=== PATIENT | female | born 1980 ===

== ENCOUNTER 2020-10-02 06:35 | Outpatient (REF) | payer OTHER, SELFPAY ==
[2020-10-02 11:12] LABS: MANUAL DIFF FLAG NO
[2020-10-02 11:22] LABS: Basophils Percent Auto 0.4 % (0-2); Eosinophils Absolute Auto 0.1 X10*3/uL (0.0-0.4); Eosinophils Percent Auto 1.5 % (0-4); Estimated Average Glucose 140 mg/dL; Hematocrit 41.4 % (37-47); Hemoglobin 13.2 g/dl (12.0-16.0); Hemoglobin A1c % 6.5 %; Imm Gran Abs Auto 0.02 X10*3/uL (0.00-0.03); Imm Gran Pct Auto 0.3 % (0.0-0.4); Lymphocytes Absolute Auto 2.8 X10*3/uL (1.2-4.9); Lymphocytes Percent Auto 37.8 % (20-40); Mean Corpuscular HGB Conc 31.9 g/dl (31.0-35.0); Mean Corpuscular Hemoglobin 29.5 pg (27.0-33.0); Mean Corpuscular Volume 92.4 fL (80-98); Mean Platelet Volume 11.4 fL (9.4-12.3); Monocytes Absolute Auto 0.6 X10*3/uL (0.1-1.2); Monocytes Percent Auto 7.7 % (2-11); Neutrophils Absolute Auto 3.8 X10*3/uL (2.0-8.3); Neutrophils Percent Auto 52.3 % (45-73); Platelet Count 301 X10*3/uL (160-400); Red Blood Count 4.48 X10*6/uL (4.20-5.50); Red Cell Distribution Width 12.3 % (11.0-16.0); White Blood Count 7.3 X10*3/uL (4.8-10.8)
[2020-10-02 11:57] LABS: Alanine Aminotransferase 27 U/L (0-31); Albumin Level 4.4 g/dL (3.5-5.0); Alkaline Phosphatase 39 U/L (39-117); Anion Gap 13 (12-20); Aspartate Amino Transferase 34 U/L (5-31); Bilirubin Total 0.7 mg/dL (0.0-1.0); Blood Urea Nitrogen 13 mg/dL (9-16); Calcium 9.2 mg/dL (8.4-10.2); Carbon Dioxide 26 mmol/L (22-29); Chloride 104 mmol/L (96-108); Cholesterol 183 mg/dL; Estimated Glomerular Filt Rate > 60; Glucose Fasting 76 mg/dL (60-99); HDL Cholesterol 38 mg/dL; LDL Cholesterol Calculated 124 mg/dl; Potassium 3.6 mmol/L (3.3-5.1); Sodium 139 mmol/L (135-145); Total Protein 7.4 g/dL (6.5-8.0); Triglycerides 107 mg/dL
[2020-10-02 12:03] LABS: Creatinine Urine 121.79 mg/dL; Microalbum/Creatinine Ratio Ur 4.9 ug/mg cr; Vitamin D 25-OH Total 23.4 ng/mL (>30)
[2020-10-03 05:37] LABS: LDL Cholesterol Direct 131 mg/dL (<100)
== END 2020-10-02 06:36 | disposition home or self-care (01) ==
LOC: HO.HMGCLDS 06:35
PROVIDERS: PCP Internal Medicine; Visit Provider Internal Medicine Endocrinology, Diabetes & Metabolism
DX: E11.29 Type 2 diabetes mellitus with other diabetic kidney complication (principal); E55.9 Vitamin D deficiency, unspecified
CPT/HCPCS: 36415; 80053; 80061; 82043; 82306; 83036; 83721; 85025

== ENCOUNTER → 2020-10-03 08:36 | Outpatient (BNVA) | payer OTHER, SELFPAY | PROVIDERS: PCP Internal Medicine; Visit Provider Internal Medicine Endocrinology, Diabetes & Metabolism | DX: E11.21 Type 2 diabetes mellitus with diabetic nephropathy (principal); Z79.4 Long term (current) use of insulin; I10 Essential (primary) hypertension; E78.5 Hyperlipidemia, unspecified; E55.9 Vitamin D deficiency, unspecified; E66.9 Obesity, unspecified; Z68.32 Body mass index [BMI] 32.0-32.9, adult; Z79.899 Other long term (current) drug therapy | CPT/HCPCS: 82947; 99212 ==

== ENCOUNTER → 2021-02-27 13:44 | Outpatient (BNVA) | payer OTHER, SELFPAY | PROVIDERS: PCP Internal Medicine; Visit Provider Internal Medicine Endocrinology, Diabetes & Metabolism | DX: E11.21 Type 2 diabetes mellitus with diabetic nephropathy (principal); E78.5 Hyperlipidemia, unspecified; E55.9 Vitamin D deficiency, unspecified; E66.9 Obesity, unspecified; I10 Essential (primary) hypertension; Z79.4 Long term (current) use of insulin | CPT/HCPCS: 82947 ==

== ENCOUNTER 2023-06-09 08:43 | Outpatient (AMB) | payer OTHER, SELFPAY ==
[2023-06-09 08:47] VITALS: BP 138/78; PULSE 75; O2SAT 98; BMI 33.2
--- NOTE | 2023-06-09 08:47 | MHC.PC.OV ---
Vital Signs 06/09/23 08:47 Height 5 ft Weight 170 lb BMI 33.2 BP 138/78 Blood Pressure Location Lt brachial Position Sitting Pulse 75 Pulse Source Pulse Oximeter Pulse Oximetry (%) 98 Oxygen Delivery Method Room Air Intake Visit Reasons: Annual Physical Wage And Salary Administrator Required: No Program Associate: Not Required per policy Accompanied by: Self / Same As Patient Allergies No Known Allergies Allergy (Verified 06/09/23 08:47) Medication List - Last Reconciled 06/09/23 by Julio C Jin MD blood sugar diagnostic (FreeStyle Lite Strips) 6x daily labetalol 100 mg PO BID metformin ER 500 mg PO BID pen needle, diabetic (BD Shavon 2nd Gen Pen Needle) once a day Tobacco use date assessed: 06/09/23 Dental Screening Dental Screen Date: 06/09/23 Did you have a dental visit in the last 12 months?: Yes Did you have a dental problem in the last 6 months where you did not have access to dental care?: No Was dental information given to patient?: Patient has dentist HPI Annual Physical HPI Details HTN and DM; sees endo [facility] Medical History Obesity (BMI 30-39.9) Vitamin D deficiency Dyslipidemia Hypertension Diabetic nephropathy associated with type 2 diabetes mellitus [facility]CI (current) use of insulin Diabetes type 2, controlled Surgical History Hx of umbilical hernia repair Hx of section Hx of cholecystectomy Family History Father Diabetes mellitus Mother Diabetes mellitus Maternal Grandmother Diabetes mellitus Social History Housing: House Alcohol intake: current Alcohol intake frequency: a few times a month Patient Tobacco Use Status: Never used Tobacco e-Cigarette/Vaping Use: Never Used service: No Current occupational status: employed Cognitive needs: No Hearing needs: No Vision needs: No Questionnaire PHQ-9 Over the last 2 weeks, how often have you been bothered by any of the following problems? 1. Little interest or pleasure in doing things: not at all 2. Feeling down, depressed, or hopeless: not at all 3. Trouble falling or staying asleep, or sleeping too much: not at all 4. Feeling tired or having little energy: not at all 5. Poor appetite or overeating: not at all 6. Feeling bad about yourself - or that you are a failure or have let yourself or your family down: not at all 7. Trouble concentrating on things, such as reading the newspaper or watching television: not at all 8. Moving or speaking so slowly that other people could have noticed. Or the opposite - being so fidgety or restless that you have been moving around a lot more than usual: not at all 9. Thoughts that you would be better off or of hurting yourself in some way: not at all Total score: 0 Depression Screening Interpretation: Negative Depression Screening Done: Yes Source: Developed by Drs. Obinna Mei, Mercy Resendiz, Kenton Mclaughlin and colleagues, with an educational simran from [email or web address]. Thrive Questionnaire Date Thrive assessed: 06/09/23 I am a: Patient What is your living situation today?: I have a steady place to live Within the past 12 months, did the food you bought not last and you didn't have the money to get more?: Never true Within the past 12 months, did you worry whether your food would run out before you got money to buy more?: Never true Do you have trouble paying for medicines?: No Do you have trouble getting transportation to medical appointments?: No Do you have trouble paying your heating and electricity bill?: No Do you have trouble taking care of your child, family member or friend?: No Do you have trouble with day-to-day activities such as bathing, preparing meals, shopping, managing finances, etc.?: No Are you currently unemployed and looking for a job?: No Are you interested in more education?: No Please select the resources that you would like help with: None AUDIT C Alcohol Use Questionnaire (AUDIT-C) 1. How often do you have a drink containing alcohol?: 2-4 times a month 2. How many drinks containing alcohol do you have on a typical day when you are drinking?: 1 or 2 3. How often do you have six or more drinks on one occasion?: Never Total Score: 2 Score Reviewed/Action Taken: Yes GILES-7 AMB Questionnaire GILES-7 Date GILES - 7 assessed: 06/09/23 Feeling nervous, anxious, or on edge: 0 = Not at all Not being able to stop or control worryin = Not at all Worrying too much about different things: 0 = Not at all Trouble relaxin = Not at all Being so restless that it is hard to sit still: 0 = Not at all Becoming easily annoyed or irritable: 0 = Not at all Feeling afraid as if something awful might happen: 0 = Not at all Total GILES-7 score (0-4 normal; 5-9 mild; 10-14 moderate; 15-21 severe): 0 Source: Developed by Drs. Obinna Mei, Mercy Resendiz, Kenton Mclaughlin and colleagues, with an educational simran from [email or web address]. Review of Systems Const Denies chills, Denies fatigue, Denies headache(s) and Denies weight loss Eyes Denies change in vision, Denies diplopia and Denies eye pain ENT Denies vertigo, Denies dizziness, Denies headache(s) and Denies nasal discharge Card Denies chest pain, Denies rapid heart rate and Denies dyspnea on exertion Resp Denies chest congestion, Denies cough, Denies pain with cough and Denies dyspnea on exertion GI Denies abdominal pain, Denies hematochezia and Denies change in bowel habits Musc Denies myalgias, Denies arthralgias and Denies joint swelling Skin/Breast Denies lesions and Denies unusual bruising Neuro Denies vertigo, Denies dizziness, Denies headache(s) and Denies focal weakness Endo Denies fatigue Physical exam (Primary Care) Vital Signs: Last Vital Signs Pulse 75 06/09/23 08:47 BP 138/78 06/09/23 08:47 Pulse Ox 98 06/09/23 08:47 Oxygen Delivery Method Room Air 06/09/23 08:47 BMI result Body Mass Index 33.2 Tobacco/Smoking Status: Tobacco use Status Tobacco use date assessed 06/09/23 06/09/23 08:49 Patient Tobacco Use Status Never used Tobacco 06/09/23 08:49 Tobacco use type 06/08/23 08:33 e-Cigarette/Vaping Use Never Used 06/09/23 08:49 PHQ-9: PHQ-9 Score PHQ-9: Total score 0 06/09/23 08:49 Depression Screening Interpretation: Negative Thrive Assessment: Date of Thrive Assessment Date Thrive assessed 06/09/23 06/09/23 08:49 Const General: cooperative, healthy appearing and no acute distress Orientation/consciousness: oriented to person, oriented to place and oriented to time HENMT Head: Yes normal to inspection, Yes normocephalic and Yes atraumatic Mouth: Normal oral and palatal mucosa present and tongue normal Throat: Yes posterior oropharynx normal and Yes uvula midline Eyes General: appearance normal, both eyes and all related structures Neck Neck: Yes normal visual inspection, Yes full ROM and Yes no lymphadenopathy Thyroid: Thyroid normal Carotids: normal carotid upstroke Chest Chest palpation & inspection: normal inspection of the chest Resp Effort & Inspection: normal respiratory effort and able to speak in complete sentences Auscultation: clear to auscultation bilaterally Cardio Jugular venous distension: no JVD Palpation: normal PMI Rate: regular rate Rhythm: regular rhythm Heart sounds: S1 normal heart sound present and S2 normal heart sound present GI Inspection: Yes normal to inspection Palpation (GI): Soft to palpation and No hepatosplenomegaly present Auscultation: normal bowel sounds General: Yes no CVA tenderness Back/Spine/Pelvis Back: no CVA tenderness Skin General skin exam: no rashes or lesions noted Neuro General: oriented to person, oriented to place and oriented to time Extrem General: Yes normal to inspection and Yes full ROM Assessment and Plan Assessment & Plan (1) Physical exam: Code(s): Z00.00 - Encounter for general adult medical examination without abnormal findings Plan: do labs (2) Hypertension: Code(s): I10 - Essential (primary) hypertension Plan: stable; same rx (3) Diabetes mellitus with coincident hypertension: Code(s): E11.9 - Type 2 diabetes mellitus without complications; I10 - Essential (primary) hypertension Plan: stable; sees endo Orders: Orders AMB Hemoglobin A1c Today E11.9 - Type 2 diabetes mellitus without complications Comprehensive [place]. Panel Fast Today N28.9 - Disorder of kidney and ureter, unspecified Lipid Panel Today E78.5 - Hyperlipidemia, unspecified Complete Blood Count Auto Diff Today D64.9 - Anemia, unspecified Thyroid Stimulating Hormone Today E03.9 - Hypothyroidism, unspecified Hemoglobin A1c Today R73.9 - Hyperglycemia, unspecified ECG 12 lead EKG Today R07.9 - Chest pain, unspecified Coding Level of Care Code Est Pt Prev Care 40-64y(61952) Diagnoses Physical exam Z00.00 Hypertension I10 Diabetes mellitus with coincident hypertension E11.9; I10 Additional Codes PHQ-9 - 62438 - PHQ-9 Billing: ([id number])
== END 2023-06-09 09:14 | disposition home or self-care (01) ==
PROVIDERS: PCP Internal Medicine; Visit Provider Internal Medicine
DX: Z00.00 Encounter for general adult medical examination without abnormal findings (principal); I10 Essential (primary) hypertension; E11.9 Type 2 diabetes mellitus without complications
CPT/HCPCS: 83036; 99396

== ENCOUNTER 2023-06-09 09:19 | Outpatient (REF) | payer OTHER, SELFPAY ==
[2023-06-09 12:19] LABS: Estimated Average Glucose 275 mg/dL; Hemoglobin A1c % 11.2 % (<6.0)
== END 2023-06-09 09:20 | disposition home or self-care (01) ==
LOC: HO.LAB 09:19
PROVIDERS: PCP Internal Medicine; Visit Provider Internal Medicine
DX: R07.9 Chest pain, unspecified (principal); E11.9 Type 2 diabetes mellitus without complications; D64.9 Anemia, unspecified; N28.9 Disorder of kidney and ureter, unspecified; E78.5 Hyperlipidemia, unspecified; E03.9 Hypothyroidism, unspecified
CPT/HCPCS: 36415; 80053; 80061; 83036; 84443; 85025; 93005

== ENCOUNTER 2024-06-12 08:48 | Outpatient (AMB) | payer OTHER, SELFPAY ==
[2024-06-12 08:56] VITALS: BP 140/88; PULSE 95; O2SAT 97; BMI 33.0
--- NOTE | 2024-06-12 08:56 | A.OFFPC_ITS ---
Vital Signs 06/12/24 08:56 Height 5 ft Weight 169 lb BMI 33.0 BP 140/88 H Blood Pressure Location Lt brachial Position Sitting Pulse 95 Pulse Source Pulse Oximeter Pulse Oximetry (%) 97 Oxygen Delivery Method Room Air Intake Visit Reasons: ANNUAL Labor Trainer Required: No Accompanied by: Self / Same As Patient Allergies No Known Allergies Allergy (Verified 06/12/24 09:00) Medication List - Last Reconciled 06/12/24 by Julio C Jin MD blood sugar diagnostic (FreeStyle Lite Strips) 6x daily empagliflozin (Jardiance) 25 mg PO DAILY metformin ER 500 mg PO BID pen needle, diabetic (BD Shavon 2nd Gen Pen Needle) once a day Tobacco use date assessed: 06/12/24 Dental Screening Dental Screen Date: 06/12/24 Did you have a dental visit in the last 12 months?: Yes Did you have a dental problem in the last 6 months where you did not have access to dental care?: No Was dental information given to patient?: Patient has dentist HPI ANNUAL HPI Details DM on rx; doing well; compliant and sees endo; A1C high PFSH Medical History Obesity (BMI 30-39.9) Vitamin D deficiency Dyslipidemia Hypertension Diabetic nephropathy associated with type 2 diabetes mellitus alf (current) use of insulin Diabetes type 2, controlled Surgical History Hx of umbilical hernia repair Hx of section Hx of cholecystectomy Family History Father Diabetes mellitus Mother Diabetes mellitus Maternal Grandmother Diabetes mellitus Social History Housing: House Alcohol intake: current Alcohol intake frequency: a few times a month Patient Tobacco Use Status: Never used Tobacco Tobacco use type: Cigarette e-Cigarette/Vaping Use: Never Used Second Hand Smoke Exposure: No service: No Current occupational status: employed Cognitive needs: No Hearing needs: No Vision needs: No Questionnaire PHQ-9 Over the last 2 weeks, how often have you been bothered by any of the following problems? 1. Little interest or pleasure in doing things: not at all 2. Feeling down, depressed, or hopeless: not at all 3. Trouble falling or staying asleep, or sleeping too much: not at all 4. Feeling tired or having little energy: not at all 5. Poor appetite or overeating: not at all 6. Feeling bad about yourself - or that you are a failure or have let yourself or your family down: not at all 7. Trouble concentrating on things, such as reading the newspaper or watching television: not at all 8. Moving or speaking so slowly that other people could have noticed. Or the opposite - being so fidgety or restless that you have been moving around a lot more than usual: not at all 9. Thoughts that you would be better off or of hurting yourself in some way: not at all Total score: 0 Source: Developed by Drs. Obinna Mei, Mercy Resendiz, Kenton Mclaughlin and colleagues, with an educational simran from [employer]. Thrive Questionnaire Date Thrive assessed: 06/12/24 I am a: Patient What is your living situation today?: I have a steady place to live Within the past 12 months, did the food you bought not last and you didn't have the money to get more?: Never true Within the past 12 months, did you worry whether your food would run out before you got money to buy more?: Never true Do you have trouble paying for medicines?: No Do you have trouble getting transportation to medical appointments?: No Do you have trouble paying your heating and electricity bill?: No Do you have trouble taking care of your child, family member or friend?: No Do you have trouble with day-to-day activities such as bathing, preparing meals, shopping, managing finances, etc.?: No Are you currently unemployed and looking for a job?: No Are you interested in more education?: No Please select the resources that you would like help with: None Currently or been in a relationship where the following occur: No concerns reported THRIVE Score: 0 AUDIT C Alcohol Use Questionnaire (AUDIT-C) 1. How often do you have a drink containing alcohol?: Never Total Score: 0 GILES-7 AMB Questionnaire GILES-7 Date GILES - 7 assessed: 06/12/24 Feeling nervous, anxious, or on edge: 0 = Not at all Not being able to stop or control worryin = Not at all Worrying too much about different things: 0 = Not at all Trouble relaxin = Not at all Being so restless that it is hard to sit still: 0 = Not at all Becoming easily annoyed or irritable: 0 = Not at all Feeling afraid as if something awful might happen: 0 = Not at all Total GILES-7 score (0-4 normal; 5-9 mild; 10-14 moderate; 15-21 severe): 0 Source: Developed by Drs. Obinna Mei, Mercy Resendiz, Kenton Mclaughlin and colleagues, with an educational simran from [employer]. Review of Systems Const Denies chills, Denies fatigue, Denies headache(s) and Denies weight loss Eyes Denies change in vision, Denies diplopia and Denies eye pain ENT Reports Normal hearing present, Denies vertigo, Denies dizziness, Denies headache(s) and Denies nasal discharge Card Denies chest pain, Denies rapid heart rate and Denies dyspnea on exertion Resp Denies chest congestion, Denies cough, Denies pain with cough and Denies dyspnea on exertion GI Denies abdominal pain, Denies hematochezia and Denies change in bowel habits Musc Denies myalgias, Denies arthralgias and Denies joint swelling Skin/Breast Denies lesions and Denies unusual bruising Neuro Reports Normal hearing present, Denies vertigo, Denies dizziness, Denies headache(s) and Denies focal weakness Endo Denies fatigue Physical exam (Primary Care) Vital Signs: Last Vital Signs Pulse 95 06/12/24 08:56 BP 140/88 H 06/12/24 08:56 Pulse Ox 97 06/12/24 08:56 Oxygen Delivery Method Room Air 06/12/24 08:56 BMI result Body Mass Index 33.0 Tobacco/Smoking Status: Tobacco use Status Tobacco use date assessed 06/12/24 06/12/24 09:03 Patient Tobacco Use Status Never used Tobacco 06/12/24 09:03 Tobacco use type Cigarette 06/12/24 09:03 e-Cigarette/Vaping Use Never Used 06/12/24 09:03 PHQ-9: PHQ-9 Score PHQ-9: Total score 0 06/12/24 09:07 Thrive Assessment: Date of Thrive Assessment Date Thrive assessed 06/12/24 06/12/24 09:03 Currently or been in a relationship where the following occur: No concerns reported Const General: cooperative, healthy appearing and no acute distress Orientation/consciousness: oriented to person, oriented to place and oriented to time HENMT Head: Yes normal to inspection, Yes normocephalic and Yes atraumatic Mouth: Normal oral and palatal mucosa present and tongue normal Throat: Yes posterior oropharynx normal and Yes uvula midline Eyes General: appearance normal, both eyes and all related structures Neck Neck: Yes normal visual inspection, Yes full ROM and Yes no lymphadenopathy Thyroid: Thyroid normal Carotids: normal carotid upstroke Chest Chest palpation & inspection: normal inspection of the chest Resp Effort & Inspection: normal respiratory effort and able to speak in complete sentences Auscultation: clear to auscultation bilaterally Cardio Jugular venous distension: no JVD Palpation: normal PMI Rate: regular rate Rhythm: regular rhythm Heart sounds: S1 normal heart sound present and S2 normal heart sound present GI Inspection: Yes normal to inspection Palpation (GI): Soft to palpation and No hepatosplenomegaly present Auscultation: normal bowel sounds General: Yes no CVA tenderness Back/Spine/Pelvis Back: no CVA tenderness Skin General skin exam: no rashes or lesions noted Neuro General: oriented to person, oriented to place and oriented to time Cranial nerves: Yes Normal hearing present Extrem General: Yes normal to inspection and Yes full ROM Results AMB Hemoglobin A1c AMB Hemoglobin A1c 11.4 % Last Edit by Ana Lilia Koch CMA on 06/12/24 09:0 7 Results Reviewed Results Reviewed: Laboratory Last Values Hgb A1c (Clinic) 11.4 % (4.0-6.0) H 06/12/24 09:03 Coding Level of Care Code Est Pt Prev Care 40-64y(11549) Diagnoses Physical exam Z00.00 Diabetes mellitus with coincident hypertension E11.9; I10 Assessment & Plan Assessment & Plan (1) Physical exam: Code(s): Z00.00 - Encounter for general adult medical examination without abnormal findings Category: Medical Plan: stable (2) Diabetes mellitus with coincident hypertension: Code(s): E11.9 - Type 2 diabetes mellitus without complications; I10 - Essential (primary) hypertension Category: Medical Plan: same rx per endo; do lbs Orders: Orders Thyroid Stimulating Hormone Today Z13.29 - Encounter for screening for other suspected endocrine disorder Hemoglobin A1c Today R73.9 - Hyperglycemia, unspecified Microalbumin, Random (w Creat) Today E11.69 - Type 2 diabetes mellitus with other specified complication, E66.01 - Morbid (severe) obesity due to excess calories AMB Hemoglobin A1c Today E11.9 - Type 2 diabetes mellitus without complications, I10 - Essential (primary) hypertension Lipid Panel Today Z13.220 - Encounter for screening for lipoid disorders Comprehensive [place]. Panel Fast Today Z13.9 - Encounter for screening, unspecified Complete Blood Count Auto Diff Today Z13.0 - Encounter for screening for diseases of the blood and blood-forming organs and certain disorders involving the immune mechanism US abdomen complete Today R10.9 - Unspecified abdominal pain
== END 2024-06-12 09:23 | disposition home or self-care (01) ==
PROVIDERS: PCP Internal Medicine; Visit Provider Internal Medicine
DX: Z00.00 Encounter for general adult medical examination without abnormal findings (principal); E11.9 Type 2 diabetes mellitus without complications; I10 Essential (primary) hypertension

== ENCOUNTER → 2024-06-12 08:48 | Outpatient (BNVA) | payer OTHER, SELFPAY | PROVIDERS: PCP Internal Medicine; Visit Provider Internal Medicine | DX: Z00.00 Encounter for general adult medical examination without abnormal findings (principal); E11.9 Type 2 diabetes mellitus without complications | CPT/HCPCS: 83036; 96127 ==

== ENCOUNTER 2024-12-12 10:19 | Outpatient (AMB) | payer OTHER, SELFPAY ==
--- NOTE | 2024-12-12 10:24 | A.OFFPC_ITS ---
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 Accompanied by: Self / Same As Patient Allergies No Known Allergies Allergy (Verified 12/12/24 10:40) Medication List - Last Reconciled 12/12/24 by Annie Faith PA-C blood sugar diagnostic (FreeStyle Lite Strips) 6x daily empagliflozin (Jardiance) 25 mg PO DAILY glipizide ER 2.5 mg PO DAILY metformin ER 500 mg PO BID pen needle, diabetic (BD Shavon 2nd Gen Pen Needle) once a day Tobacco use date assessed: 12/12/24 Dental Screening Dental Screen Date: 12/12/24 Did you have a dental visit in the last 12 months?: No Did you have a dental problem in the last 6 months where you did not have access to dental care?: No Was dental information given to patient?: Patient has dentist HPI ISABEL Dr Jin HPI Details 44-year-old female with past medical his tory of diabetes mellitus, hypertension, dyslipidemia last seen by Dr. Jin 05/2024 coming in for transfer of care. Presenting with diabetes management concerns and knee pain. Current medications include Jardiance, glipizide, and metformin for diabetes. Hemoglobin A1c recently noted at 10.5 with hopes for improvement through nutritional interventions. Engages in an insurance-provided weight management program focusing on nutritional change, beginning with a keto-based diet next week. 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 She also recently had labs done through [facility] and will work on getting a sees results. She follows with gynecology through [facility] for routine Pap smears and sees the eye doctor yearly. She does mentioned bilateral knee pain. 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 Diabetes type 2, controlled Surgical History Hx of umbilical hernia repair Hx of section Hx of cholecystectomy Family History Father Diabetes mellitus Mother Diabetes mellitus Maternal Grandmother Diabetes mellitus Social History Housing: House Alcohol intake: current Alcohol intake frequency: a few times a month Patient Tobacco Use Status: Never used Tobacco Tobacco use type: Cigarette e-Cigarette/Vaping Use: Never Used Second Hand Smoke Exposure: No service: No Current occupational status: employed Cognitive needs: No Hearing needs: No Vision needs: No Questionnaire PHQ-9 Over the last 2 weeks, how often have you been bothered by any of the following problems? 1. Little interest or pleasure in doing things: not at all 2. Feeling down, depressed, or hopeless: not at all 3. Trouble falling or staying asleep, or sleeping too much: not at all 4. Feeling tired or having little energy: not at all 5. Poor appetite or overeating: not at all 6. Feeling bad about yourself - or that you are a failure or have let yourself or your family down: not at all 7. Trouble concentrating on things, such as reading the newspaper or watching television: not at all 8. Moving or speaking so slowly that other people could have noticed. Or the opposite - being so fidgety or restless that you have been moving around a lot more than usual: not at all 9. Thoughts that you would be better off or of hurting yourself in some way: not at all Total score: 0 Depression Screening Interpretation: Negative Depression Screening Done: Yes Source: Developed by Drs. Obinna Mei, Mercy Resendiz, Kenton Mclaughlin and colleagues, with an educational simran from [employer]. Thrive Questionnaire Date Thrive assessed: 12/12/24 I am a: Patient What is your living situation today?: I have a steady place to live Within the past 12 months, did the food you bought not last and you didn't have the money to get more?: Never true Within the past 12 months, did you worry whether your food would run out before you got money to buy more?: Never true Do you have trouble paying for medicines?: No Do you have trouble getting transportation to medical appointments?: No Do you have trouble paying your heating and electricity bill?: No Do you have trouble taking care of your child, family member or friend?: No Do you have trouble with day-to-day activities such as bathing, preparing meals, shopping, managing finances, etc.?: No Are you currently unemployed and looking for a job?: No Are you interested in more education?: No Please select the resources that you would like help with: None Currently or been in a relationship where the following occur: No concerns reported THRIVE Score: 0 AUDIT C Alcohol Use Questionnaire (AUDIT-C) 2. How many drinks containing alcohol do you have on a typical day when you are drinking?: 1 or 2 3. How often do you have six or more drinks on one occasion?: Never Total Score: 0 GILES-7 AMB Questionnaire GILES-7 Date GILES - 7 assessed: 12/12/24 Feeling nervous, anxious, or on edge: 0 = Not at all Not being able to stop or control worryin = Not at all Worrying too much about different things: 0 = Not at all Trouble relaxin = Not at all Being so restless that it is hard to sit still: 0 = Not at all Becoming easily annoyed or irritable: 0 = Not at all Feeling afraid as if something awful might happen: 0 = Not at all Total GILES-7 score (0-4 normal; 5-9 mild; 10-14 moderate; 15-21 severe): 0 Source: Developed by Drs. Obinna Mei, Mercy Resendiz, Kenton Mclaughlin and colleagues, with an educational simran from [employer]. GILES-7 Assessment Billing GILES-7 Assessment Tool: GILES-7 Assessment 76794 Review of Systems Const Denies body aches, Denies chills, Denies fever(s), Reports headache(s) and Denies poor appetite Eyes Reports no additional complaints ENT Denies dizziness and Reports headache(s) Card Denies chest pain, Denies syncope, Denies edema, Denies irregular heart rhythm, Denies lightheadedness and Denies dyspnea Resp Denies cough and Denies dyspnea GI Denies nausea and Denies vomiting Reports no additional complaints Musc Reports no additional complaints and Denies abnormal gait Skin/Breast Reports system reviewed and no additional complaints, except as documented Neuro Denies abnormal gait, Denies dizziness, Denies syncope and Reports headache(s) Psych Reports no additional complaints Physical exam (Primary Care) Vital Signs: Last Vital Signs Temp 97.1 F 12/12/24 10:26 Pulse 78 12/12/24 10:26 BP 130/70 12/12/24 10:26 Pulse Ox 97 12/12/24 10:26 Oxygen Delivery Method Room Air 12/12/24 10:26 BMI result Body Mass Index 33.3 Tobacco/Smoking Status: Tobacco use Status Tobacco use date assessed 12/12/24 12/12/24 10:32 Patient Tobacco Use Status Never used Tobacco 12/12/24 10:32 Tobacco use type Cigarette 12/12/24 10:32 e-Cigarette/Vaping Use Never Used 12/12/24 10:32 PHQ-9: PHQ-9 Score PHQ-9: Total score 0 12/12/24 10:52 Depression Screening Interpretation: Negative Thrive Assessment: Date of Thrive Assessment Date Thrive assessed 12/12/24 12/12/24 10:32 Currently or been in a relationship where the following occur: No concerns reported Const General: cooperative, healthy appearing, comfortable and no acute distress Orientation/consciousness: patient oriented x3 HENMT Head: Yes normocephalic Ears: hearing grossly normal bilaterally General nose exam: Normal external nose present Eyes General: appearance normal, both eyes and all related structures Conjunctivae: conjunctivae normal Neck Neck: Yes full ROM and Yes no lymphadenopathy Resp Effort & Inspection: normal respiratory effort Auscultation: clear to auscultation bilaterally, no crackles, no rales, no rhonchi and no wheezes Cardio Rate: regular rate Rhythm: regular rhythm Skin General skin exam: no rashes or lesions noted Neuro General: patient oriented x3 Gait exam (Neuro): Normal gait present Extrem General: Yes normal to inspection, Yes full ROM and No edema Psych Affect: normal affect Attitude: cooperative Insight: Good insight present (Psych) Judgement: Good judgement present (Psych) Results AMB Hemoglobin A1c AMB Hemoglobin A1c 10.5 % Last Edit by ABEL Diaz on 12/12/24 10:3 7 Results Reviewed Results Reviewed: Laboratory Last Values Hgb A1c (Clinic) 10.5 % (4.0-6.0) H 12/12/24 10:24 Coding Level of Care Code Est Pt Level 4 (80112) Diagnoses Diabetes mellitus with coincident hypertension E11.9; I10 Obesity (BMI 30-39.9) E66.9 Vitamin D deficiency E55.9 Dyslipidemia E78.5 Hypertension I10 Diabetic nephropathy associated with type 2 diabetes mellitus E11.21 Bilateral knee pain M25.561; M25.562 Additional Codes GILES-7 Assessment Billing - GILES-7 Assessment Tool: GILES-7 Assessment 43757 ([id number]) Assessment & Plan Assessment & Plan (1) Diabetes mellitus with coincident hypertension: Code(s): E11.9 - Type 2 diabetes mellitus without complications; I10 - Essential (primary) hypertension Category: Medical Plan: Decrease the amount of carbohydrates such as pasta, bread, rice, and potatoes and limit the amount of sweets. Although fruits are generally healthy they should be eaten in moderation as they are still high in sugar. Hemoglobin A1c goal of less than 7%. 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 Continue to follow with [facility] endocrinology (2) Obesity (BMI 30-39.9): Code(s): E66.9 - Obesity, unspecified Category: Medical Plan: Healthy diet and regular exercise is encouraged. (3) Vitamin D deficiency: Code(s): E55.9 - Vitamin D deficiency, unspecified Category: Medical Plan: Repeat blood work recently done she will bring us the results. (4) Dyslipidemia: Code(s): E78.5 - Hyperlipidemia, unspecified Category: Medical Plan: Avoid foods that are high in cholesterol such as red meat, fried foods, eggs and baked goods. Triglyceride goal of less than 150 and LDL goal of less than 100. Cholesterol elevated on last labs not currently on medical management. She believes she had cholesterol labs done through lab [facility] and she will work on bringing as these results. (5) Hypertension: Code(s): I10 - Essential (primary) hypertension Category: Medical Plan: Continue on current blood pressure medication. Avoid salt intake and encourage healthy diet and regular exercise. Advised to take blood pressure 2-3 times per week and bring log to next visit (6) Diabetic nephropathy associated with type 2 diabetes mellitus: Code(s): E11.21 - Type 2 diabetes mellitus with diabetic nephropathy Category: Medical Plan: Advised good control of blood sugars. She will work on dietary and lifestyle modification over the next several months. (7) Bilateral knee pain: Code(s): M25.561 - Pain in right knee; M25.562 - Pain in left knee Category: Medical Plan: Declining x-ray, physical therapy or orthopedics evaluation at this time. Recommend the use of Voltaren gel as needed for pain as well as heating pad, Tylenol, ibuprofen as needed. Plan Diabetes management will continue with the current regimen without alteration until further review of upcoming [facility] results. A new nutritional initiative under insurance aims to enhance diabetes control and facilitate weight loss; patient encouraged to adhere. Address recent weight gain through dietary awareness and management of cravings at home. Voltaren gel is recommended for knee pain and instruction for home blood pressure logging is provided, with logs to be reviewed in three months. Mammogram scheduling and Pap smear follow-up to be prioritized. This note was constructed using voice recognition software. While every effort has been made to ensure accuracy and fountain pen turner, still areas may have been included sometimes these areas may affect the content or meeting of the given symptoms. Total time spent caring for the patient today was 30 minutes. This includes time spent before the visit reviewing the chart, time spent during the visit, and time spent after the visit and documentation. Patient was informed and verbally consented to the use of an ambient scribe for clinic note documentation during this visit. Orders: Orders AMB Hemoglobin A1c Today E11.9 - Type 2 diabetes mellitus without complications, I10 - Essential (primary) hypertension MM tomosynthesis screening BI Today Z12.31 - Encounter for screening mammogram for malignant neoplasm of breast Medications: New diclofenac sodium 1% (Voltaren Arthritis Pain) apply to single elbow, wrist or hand; for hand includes palm/fingers/back of hand 2 grams topical QID 100 grams 0RF
[2024-12-12 10:26] VITALS: BP 130/70; PULSE 78; TEMP 36.2; O2SAT 97; BMI 33.3
--- OUTSIDE RECORDS SUMMARY | 2024-12-12 12:17 | XMS_ITS | Continuity of Care Document ---
Author Organization [facility] Address [address] [facility]. [address] [place] [id number] Problems Condition ICD9 code ICD10 code SNOMED code Start Date End Date S tatus Encounter for screening for other metabolic disorders Z13.228 Type 2 diabetes mellitus with unspecified complications E11.8 Results Test Value / Unit Interpretation Reference Ran ge C-Peptide, Serum[[id number]]?Collected: 12/01/2024 05:48 PM?Specimen Received: 12/01/2024 05:00 AM?Source: [facility] C-Peptide, Serum [[id number]] 3.9 ng/mL 1. 1-4.4 ng/mL C-Peptide reference interval is for fasting patients. Glucose[[id number]]?Col lected: 12/01/2024 05:48 PM?Specimen Received: 12/01/2024 05:00 AM?Source: [facility] Glucose [[id number]] 172 mg/dL H 70-99 mg/dL Comp. Metabolic Panel (14)[[id number]]?Collected: 11/26/2024 05:08 PM?Specimen Received: 11/26/2024 05:00 AM?Source: [facility] Glucose [[id number]] 226 mg/dL H 70-99 mg/dL BUN [680751] 10 mg/dL 6-24 mg/dL Creatinine [767770] 0.84 mg/dL 0.57-1.0 0 mg/dL eGFR [410179] 89 mL/min/1.73 >59 mL/min/1 .73 BUN/Creatinine Ratio [238992] 12 9-23 Sodium [100405] 136 mmol/L 134-144 mmol /L Potassium [342118] 3.8 mmol/L 3.5-5.2 m mol/L Chloride [389432] 98 mmol/L 96-106 mmo l/L Carbon Dioxide, Total [743181] 24 mmol/L 20-29 mmol/L Calcium [386499] 9.7 mg/dL 8.7-10.2 mg /dL Protein, Total [541028] 7.6 g/dL 6.0- 8.5 g/dL Albumin [199008] 4.7 g/dL 3.9-4.9 g/d L Globulin, Total [863079] 2.9 g/dL 1.5 -4.5 g/dL Bilirubin, Total [520877] 0.3 mg/dL 0. 0-1.2 mg/dL Alkaline Phosphatase [386468] 85 IU/L 44-121 IU/L AST (SGOT) [603114] 35 IU/L 0-40 IU/ L ALT (SGPT) [033160] 57 IU/L H 0-32 IU/ L Lipid Panel[[id number]]?Collected: 11/26/2024 05:08 PM?Specimen Received: 11/26/2024 05:00 AM?Source: [facility] Cholesterol, Total [532645] 220 mg/dL H 100-199 mg/dL Triglycerides [358126] 214 mg/dL H 0-149 mg/dL HDL Cholesterol [906589] 53 mg/dL >39 mg/dL VLDL Cholesterol Blane [708047] 38 mg/dL 5-40 mg/dL LDL Chol Calc ([facility]) [315821] 129 mg/dL H 0-99 mg/dL Albumin/Creatinine Ratio,Uri ne[[id number]]?Collected: 11/26/2024 05:08 PM?Specimen Received: 11/26/2024 05:00 AM?Source: [facility] Creatinine, Urine [303793] 52.6 mg/dL N ot Estab. mg/dL Albumin, Urine [680666] 25.5 ug/mL Not Estab. ug/mL Alb/Creat Ratio [560363] 48 mg/g creat H 0- 29 mg/g creat Normal: 0 - 29 Moderately in creased: 30 - 300 Severely increased: >300 Hemoglobin A1c[862639]?Collected: 11/26/2024 05:08 PM?Specimen Received: 11/26/2024 05:00 AM?Source: [facility] Hemoglobin A1c [607801] 11.9 % H 4.8- 5.6 % . Prediabetes: 5.7 - 6.4 Rosa betes: >6.4 Glycemic control for adults with diabetes: 7.0 Allergies, adverse reactions, alerts No known allergies and adverse reactions Medications No administered medications reported Vital Signs No vital signs reported Social History No smoking Hx information available
== END 2024-12-12 10:58 | disposition home or self-care (01) ==
DX: E11.21 Type 2 diabetes mellitus with diabetic nephropathy (principal); I10 Essential (primary) hypertension; E66.9 Obesity, unspecified; Z68.33 Body mass index [BMI] 33.0-33.9, adult; E55.9 Vitamin D deficiency, unspecified; E78.5 Hyperlipidemia, unspecified; M25.561 Pain in right knee; M25.562 Pain in left knee

== ENCOUNTER → 2024-12-12 10:19 | Outpatient (BNVA) | payer OTHER, SELFPAY | PROVIDERS: PCP Internal Medicine | DX: E11.21 Type 2 diabetes mellitus with diabetic nephropathy (principal); I10 Essential (primary) hypertension; E66.9 Obesity, unspecified; Z68.33 Body mass index [BMI] 33.0-33.9, adult; E55.9 Vitamin D deficiency, unspecified; E78.5 Hyperlipidemia, unspecified; M25.562 Pain in left knee; M25.561 Pain in right knee | CPT/HCPCS: 83036; 96127 ==

== ENCOUNTER 2025-03-27 15:44 | Outpatient (AMB) | payer OTHER, SELFPAY ==
--- NOTE | 2025-03-27 15:47 | A.OFFPC_ITS ---
Vital Signs 03/27/25 15:48 03/27/25 16:17 Height 5 ft Weight 163 lb 4 oz BMI 31.9 BP 140/90 H 128/80 Blood Pressure Location Lt brachial Lt brachial Position Sitting Sitting Pulse 90 Pulse Source Pulse Oximeter Temp 97.6 F Temp Source Temporal Artery Scan Pulse Oximetry (%) 97 Oxygen Delivery Method Room Air Intake Visit Reasons: f/u DM and HLD Estate Manager Required: No Accompanied by: Self / Same As Patient Allergies No Known Allergies Allergy (Verified 03/27/25 15:57) Medication List - Last Reconciled 03/27/25 by Annie Faith PA-C blood sugar diagnostic (FreeStyle Lite Strips) 6x daily diclofenac sodium 1% (Voltaren Arthritis Pain) 2 grams topical QID metformin ER 500 mg PO BID pen needle, diabetic (BD Shavon 2nd Gen Pen Needle) once a day Tobacco use date assessed: 03/27/25 Dental Screening Dental Screen Date: 03/27/25 Did you have a dental visit in the last 12 months?: Yes Did you have a dental problem in the last 6 months where you did not have access to dental care?: No Was dental information given to patient?: Patient has dentist HPI f/u DM and HLD HPI Details 45-year-old female with past medical his tory of diabetes mellitus, hypertension, dyslipidemia last seen 11/2024 coming in for follow up. Presenting with a dental infection and management of chronic conditions including diabetes mellitus, hyperlipidemia, and hypertension. The patient reports a toothache with swelling, which is being managed with antibiotics and pain relief medications. A dental procedure is scheduled for April 11. The patient has a history of diabetes mellitus, currently managed with metformin. Previous medications, glipizide and Jardiance, were discontinued. The patient's HbA1c has improved from 11.9% to 8.6% with lifestyle modifications and metformin. The patient has hyperlipidemia, with triglycerides at 214 mg/dL and LDL cholesterol at 129 mg/dL. The patient is not on cholesterol medication and is managing the condition through diet and exercise. The patient reports hypertension, with recent readings at 170/90 mmHg during an urgent care visit, likely influenced by pain and stress. Home monitoring is advised to establish a baseline. [facility] Medical History Obesity (BMI 30-39.9) Vitamin D deficiency Dyslipidemia Hypertension Diabetic nephropathy associated with type 2 diabetes mellitus bolt header (current) use of insulin Diabetes type 2, controlled Surgical History Hx of umbilical hernia repair Hx of section Hx of cholecystectomy Family History Father Diabetes mellitus Mother Diabetes mellitus Maternal Grandmother Diabetes mellitus Social History Housing: House Alcohol intake: current Alcohol intake frequency: a few times a month Patient Tobacco Use Status: Never used Tobacco Tobacco use type: Cigarette e-Cigarette/Vaping Use: Never Used Second Hand Smoke Exposure: No service: No Current occupational status: employed Cognitive needs: No Hearing needs: No Vision needs: No Questionnaire PHQ-9 Over the last 2 weeks, how often have you been bothered by any of the following problems? 1. Little interest or pleasure in doing things: not at all 2. Feeling down, depressed, or hopeless: not at all 3. Trouble falling or staying asleep, or sleeping too much: not at all 4. Feeling tired or having little energy: not at all 5. Poor appetite or overeating: not at all 6. Feeling bad about yourself - or that you are a failure or have let yourself or your family down: not at all 7. Trouble concentrating on things, such as reading the newspaper or watching television: not at all 8. Moving or speaking so slowly that other people could have noticed. Or the opposite - being so fidgety or restless that you have been moving around a lot more than usual: not at all 9. Thoughts that you would be better off or of hurting yourself in some way: not at all Total score: 0 Depression Screening Interpretation: Negative Depression Screening Done: Yes Source: Developed by Drs. Obinna Mei, Mercy Resendiz, Kenton Mclaughlin and colleagues, with an educational simran from [employer]. Thrive Questionnaire Date Thrive assessed: 12/12/24 I am a: Patient What is your living situation today?: I have a steady place to live Within the past 12 months, did the food you bought not last and you didn't have the money to get more?: Never true Within the past 12 months, did you worry whether your food would run out before you got money to buy more?: Never true Do you have trouble paying for medicines?: No Do you have trouble getting transportation to medical appointments?: No Do you have trouble paying your heating and electricity bill?: No Do you have trouble taking care of your child, family member or friend?: No Do you have trouble with day-to-day activities such as bathing, preparing meals, shopping, managing finances, etc.?: No Are you currently unemployed and looking for a job?: No Are you interested in more education?: No Please select the resources that you would like help with: None Currently or been in a relationship where the following occur: No concerns reported THRIVE Score: 0 AUDIT C Alcohol Use Questionnaire (AUDIT-C) 1. How often do you have a drink containing alcohol?: Never Total Score: 0 GILES-7 AMB Questionnaire GILES-7 Date GILES - 7 assessed: 12/12/24 Feeling nervous, anxious, or on edge: 0 = Not at all Not being able to stop or control worryin = Not at all Worrying too much about different things: 0 = Not at all Trouble relaxin = Not at all Being so restless that it is hard to sit still: 0 = Not at all Becoming easily annoyed or irritable: 0 = Not at all Feeling afraid as if something awful might happen: 0 = Not at all Total GILES-7 score (0-4 normal; 5-9 mild; 10-14 moderate; 15-21 severe): 0 Source: Developed by Drs. Obinna Mei, Mercy Resendiz, Kenton Mclaughlin and colleagues, with an educational simran from [employer]. Review of Systems Const Denies body aches, Denies chills, Denies fever(s) and Denies poor appetite Eyes Reports no additional complaints ENT Denies dizziness Card Denies chest pain, Denies lightheadedness and Denies dyspnea Resp Denies dyspnea GI Denies abdominal pain, Denies nausea and Denies vomiting Reports no additional complaints Musc Reports no additional complaints and Denies abnormal gait Skin/Breast Reports system reviewed and no additional complaints, except as documented Neuro Denies abnormal gait and Denies dizziness Psych Reports no additional complaints Physical exam (Primary Care) Vital Signs: Last Vital Signs Temp 97.6 F 03/27/25 15:48 Pulse 90 03/27/25 15:48 BP 140/90 H 03/27/25 15:48 Pulse Ox 97 03/27/25 15:48 Oxygen Delivery Method Room Air 03/27/25 15:48 BMI result Body Mass Index 31.9 Tobacco/Smoking Status: Tobacco use Status Tobacco use date assessed 03/27/25 03/27/25 15:54 Patient Tobacco Use Status Never used Tobacco 03/27/25 15:54 Tobacco use type Cigarette 03/27/25 15:54 e-Cigarette/Vaping Use Never Used 03/27/25 15:54 PHQ-9: PHQ-9 Score PHQ-9: Total score 0 03/27/25 15:54 Depression Screening Interpretation: Negative Thrive Assessment: Date of Thrive Assessment Date Thrive assessed 12/12/24 03/27/25 15:54 Currently or been in a relationship where the following occur: No concerns reported Const General: cooperative, healthy appearing, comfortable and no acute distress Orientation/consciousness: patient oriented x3 HENMT Head: Yes normocephalic Ears: hearing grossly normal bilaterally General nose exam: Normal external nose present Eyes General: appearance normal, both eyes and all related structures Conjunctivae: conjunctivae normal Neck Neck: Yes full ROM and Yes no lymphadenopathy Resp Effort & Inspection: normal respiratory effort Auscultation: clear to auscultation bilaterally, no crackles, no rales, no rhonchi and no wheezes Cardio Rate: regular rate Rhythm: regular rhythm Skin General skin exam: no rashes or lesions noted Neuro General: patient oriented x3 Gait exam (Neuro): Normal gait present Extrem General: Yes normal to inspection, Yes full ROM and No edema Psych Affect: normal affect Attitude: cooperative Insight: Good insight present (Psych) Judgement: Good judgement present (Psych) Results AMB Hemoglobin A1c AMB Hemoglobin A1c 8.6 % Last Edit by Katerina Villalobos CMA on 03/27/25 15:59 Coding Level of Care Code Est Pt Level 4 (25392) Diagnoses Hypertension I10 Dyslipidemia E78.5 Diabetes mellitus with coincident hypertension E11.9; I10 Obesity (BMI 30-39.9) E66.9 Diabetic nephropathy associated with type 2 diabetes mellitus E11.21 Toothache K08.89 Assessment & Plan Assessment & Plan (1) Hypertension: Code(s): I10 - Essential (primary) hypertension Category: Medical Plan: Avoid salt intake and encourage healthy diet and regular exercise. Patient did not take blood pressure as advised at last visit. Her blood pressure in the office today is within normal limits 120/80 when it was retaken. She agrees to monitor blood pressure 2-3 times per week to establish a baseline and plan to continue monitoring in the office as well. (2) Dyslipidemia: Code(s): E78.5 - Hyperlipidemia, unspecified Category: Medical Plan: Avoid foods that are high in cholesterol such as red meat, fried foods, eggs and baked goods. Triglyceride goal of less than 150 and LDL goal of less than 100. Last LDL 129 which is above goal for this patient. Patient would like to avoid medication at this time and does understand the risk of uncontrolled cholesterol which does include but is not limited to heart attack and stroke. Plan to retest cholesterol as she has been working on dietary and lifestyle modification. (3) Diabetes mellitus with coincident hypertension: Code(s): E11.9 - Type 2 diabetes mellitus without complications; I10 - Essential (primary) hypertension Category: Medical Plan: Decrease the amount of carbohydrates such as pasta, bread, rice, and potatoes and limit the amount of sweets. Although fruits are generally healthy they should be eaten in moderation as they are still high in sugar. Hemoglobin A1c goal of less than 7%. A1c elevated in the office today 8.6%. Continue to follow with [facility] and is currently only on Metformin 1,000 mg BID. Patient's window air conditioner installer was on board with the patient discontinuing the glipizide and the Jardiance. I did discuss with the patient her A1c is still above her goal at 8.6% and she will continue to follow with endocrinology and agrees to reach out with this new A1c. I did recommend adding a medication back however patient would like to continue working on dietary and lifestyle modification at this time and understands the risks of elevated blood sugars over time. (4) Obesity (BMI 30-39.9): Code(s): E66.9 - Obesity, unspecified Category: Medical Plan: Healthy diet and regular exercise is encouraged. (5) Diabetic nephropathy associated with type 2 diabetes mellitus: Code(s): E11.21 - Type 2 diabetes mellitus with diabetic nephropathy Category: Medical Plan: Advised good control of blood sugars. She will work on dietary and lifestyle modification over the next several months. (6) Toothache: Code(s): K08.89 - Other specified disorders of teeth and supporting structures Category: Medical Plan: Patient was seen by a dentist this week and was told she has a chipped tooth in his scheduled to undergo a root canal April 11. She is currently on antibiotics and was told by her dentist to use Tylenol as needed for pain. She will continue to follow with a dentist Plan The patient will continue with antibiotics and pain relief medications for the dental infection, with a dental procedure scheduled for April 11. For diabetes management, the patient will maintain the current regimen of metformin, with a focus on dietary modifications and weight loss to further reduce HbA1c levels. The patient is advised to continue monitoring blood glucose levels and follow up with endocrinology as needed. For hyperlipidemia, the patient will continue dietary modifications and exercise, with plans to retest cholesterol levels. The patient is not currently on cholesterol medication, and the goal is to manage the condition through lifestyle changes. For hypertension, the patient is advised to monitor blood pressure at home to establish a baseline, with consideration for medication if readings remain elevated. Stress management and relaxation techniques are recommended to help control blood pressure. This note was constructed using voice recognition software. While every effort has been made to ensure accuracy and emergency spill response technician, still areas may have been included sometimes these areas may affect the content or meeting of the given symptoms. Total time spent caring for the patient today was 20 minutes. This includes time spent before the visit reviewing the chart, time spent during the visit, and time spent after the visit and documentation. Patient was informed and verbally consented to the use of an ambient scribe for clinic note documentation during this visit. Orders: Orders AMB Hemoglobin A1c Today Z13.9 - Encounter for screening, unspecified Lipid Panel Today E78.00 - Pure hypercholesterolemia, unspecified Medications: Changed From metformin ER 500 mg PO BID To metformin ER 1,000 mg PO BID
[2025-03-27 15:48] VITALS: BP 140/90; PULSE 90; TEMP 36.4; O2SAT 97; BMI 31.9
[2025-03-27 16:17] VITALS: BP 128/80
--- OUTSIDE RECORDS SUMMARY | 2025-03-27 16:28 | XMS_ITS | Patient Health Record ---
Author Organization [facility] Address [address] [place] [address] Care Team Providers Care Puppet Master Name Role Phone Annabel CORBIN, Julio C Primary Care Provider Jan Loya Jr Unavailable Reason For Referral No Information Plan Of Treatment No Information Insurance Providers Payer Name Payer Address Payer Phone Subscriber Number Group Number Insured Name Patient Relationship to Insured Coverage Start Date Coverage End Date [facility] (NEEDS REFERRA L) [address] [place] [address] [phone] [id number] EDGARDO BUTTS Self - patient is the insured
--- OUTSIDE RECORDS SUMMARY | 2025-03-27 16:28 | XMS_ITS | Continuity of Care Document ---
Author Organization [facility] Address [address] [facility] [address] [place] [address] Insurance Providers Payer Plan Claims Address Claims Phone Policy Number Group Number Relation Employer Guarantor Name Guarantor Guarantor Address Guarantor Phone STEFANIA (NEED S REFER RAL) [address] , [facility] [place] [address] tel:[phone] Self Ledy Graham [address] [place] [id number] Problems Condition ICD9 code ICD10 code SNOMED code Start Date End Date S tatus Encounter for screening for other metabolic disorders Z13.228 Type 2 diabetes mellitus with unspecified complications E11.8 Results Test Result Date/Time Value / Unit Interp. Refere nce Range C-Peptide, Serum[[id number]] Collected: 12/01/2024 05:48 PM Specimen Received: 12/01/2024 05:00 AM Source: [facility] C-Peptide, Serum [[id number]] 12/02/2024 09:38 AM 3.9 ng/mL 1.1-4.4 ng/mL C-Peptide reference interval is for fasting patients. Glucose[[id number]] Collected: 12/01/2024 05:48 PM Specimen Received: 12/01/2024 05:00 AM Source: [facility] Glucose [[id number]] 12/02/2024 04:31 AM 172 mg/dL H 70-99 mg/dL Comp. Metabolic Panel (14)[3 ] Collected: 11/26/2024 05:08 PM Specimen Received: 11/26/2024 05:00 AM Source: [facility] Glucose [[id number]] 11/27/2024 11:01 AM 226 mg/dL H 70-99 mg/dL BUN [[id number]] 11/27/2024 11:01 AM 10 mg/dL 6-2 4 mg/dL Creatinine [[id number]] 11/27/2024 11:01 AM 0.84 mg/dL 0.57-1.00 mg/dL eGFR [[id number]] 11/27/2024 11:01 AM 89 mL/min/1.73 >59 mL/min/1.73 BUN/Creatinine Ratio [[id number]] 11/27/2024 11:01 AM 12 9-23 Sodium [[id number]] 11/27/2024 11:01 AM 136 mmol/L 134-144 mmol/L Potassium [[id number]] 11/27/2024 11:01 AM 3.8 mmol/L 3.5-5.2 mmol/L Chloride [[id number]] 11/27/2024 11:01 AM 98 mmol/L 96-106 mmol/L Carbon Dioxide, Total [[id number]] 11/27/2024 11:01 AM 24 mmol/L 20-29 mmol/L Calcium [810531] 11/27/2024 10:32 AM 9.7 mg/dL 8.7-10.2 mg/dL Protein, Total [[id number]] 11/27/2024 11:01 AM 7.6 g/dL 6.0-8.5 g/dL Albumin [750602] 11/27/2024 11:01 AM 4.7 g/dL 3.9-4.9 g/dL Globulin, Total [[id number]] 11/27/2024 11:01 AM 2.9 g/dL 1.5-4.5 g/dL Bilirubin, Total [[id number]] 11/27/2024 11:01 AM 0.3 mg/dL 0.0-1.2 mg/dL Alkaline Phosphatase [[id number]] 11/27/2024 11:01 AM 85 IU/L 44-121 IU/L AST (SGOT) [[id number]] 11/27/2024 11:01 AM 35 IU/L 0-40 IU/L ALT (SGPT) [[id number]] 11/27/2024 11:01 AM 57 IU/L H 0-32 IU/L Lipid Panel[[id number]] Collected: 11/26/2024 05:08 PM Specimen Received: 11/26/2024 05:00 AM Source: [facility] Cholesterol, Total [[id number]] 11/27/2024 11:01 AM 220 mg/dL H 100-199 mg/d L Triglycerides [[id number]] 11/27/2024 11:01 AM 214 mg/dL H 0-149 mg/dL HDL Cholesterol [[id number]] 11/27/2024 11:01 AM 53 mg/dL >39 mg/dL VLDL Cholesterol Blane [[id number]] 11/27/2024 11:01 AM 38 mg/dL 5-40 mg/dL LDL Chol Calc ([facility]) [[id number]] 11/27/2024 11:01 AM 129 mg/dL H 0-99 mg/dL Albumin/Creatinine Ratio,Uri ne[[id number]] Collected: 11/26/2024 05:08 PM Specimen Received: 11/26/2024 05:00 AM Source: [facility] Creatinine, Urine [[id number]] 11/29/2024 12:17 AM 52.6 mg/dL Not Estab. m g/dL Albumin, Urine [[id number]] 11/29/2024 12:17 AM 25.5 ug/mL Not Estab. ug/mL Alb/Creat Ratio [[id number]] 11/29/2024 12:17 AM 48 mg/g creat H 0-29 mg/g creat Normal: 0 - 29 Moderately in creased: 30 - 300 Severely increased: >300 Hemoglobin A1c[[id number]] Collected: 11/26/2024 05:08 PM Specimen Received: 11/26/2024 05:00 AM Source: [facility] Hemoglobin A1c [[id number]] 11/27/2024 10:23 AM 11.9 % H 4.8-5.6 % . Prediabetes: 5.7 - 6.4 Rosa betes: >6.4 Glycemic control for adults with diabetes: 7.0 Allergies, adverse reactions, alerts No known allergies and adverse reactions Medications No administered medications reported Vital Signs No vital signs reported Social History No smoking Hx information available
== END 2025-03-27 16:25 | disposition home or self-care (01) ==
LOC: HO.HMCH 15:45
DX: I10 Essential (primary) hypertension (principal); E66.9 Obesity, unspecified; E11.21 Type 2 diabetes mellitus with diabetic nephropathy; Z68.31 Body mass index [BMI] 31.0-31.9, adult; E78.5 Hyperlipidemia, unspecified; K08.89 Other specified disorders of teeth and supporting structures

== ENCOUNTER → 2025-03-27 15:44 | Outpatient (BNVA) | payer OTHER, SELFPAY | DX: I10 Essential (primary) hypertension (principal); E78.5 Hyperlipidemia, unspecified; E66.9 Obesity, unspecified; Z68.31 Body mass index [BMI] 31.0-31.9, adult; E11.21 Type 2 diabetes mellitus with diabetic nephropathy; K08.89 Other specified disorders of teeth and supporting structures; Z79.84 Long term (current) use of oral hypoglycemic drugs; Z13.31 Encounter for screening for depression | CPT/HCPCS: 83036; 96127 ==

== ENCOUNTER 2025-04-20 11:00 | Outpatient (REF) | payer OTHER, SELFPAY ==
--- OUTSIDE RECORDS SUMMARY | 2025-04-20 11:06 | XMS_ITS | Patient Health Record ---
Author Organization [facility] Address [address] [place] [address] Care Team Providers Care Mail Service Coordinator Name Role Phone Annabel CORBIN, Julio C Primary Care Provider Jan Loya Jr Unavailable Reason For Referral No Information Plan Of Treatment No Information Insurance Providers Payer Name Payer Address Payer Phone Subscriber Number Group Number Insured Name Patient Relationship to Insured Coverage Start Date Coverage End Date [facility] (NEEDS REFERRA L) [address] [place] [address] [id number] EDGARDO BUTTS Self - patient is the insured
--- OUTSIDE RECORDS SUMMARY | 2025-04-20 11:07 | XMS_ITS | Continuity of Care Document ---
Author Organization [facility] Address [address] [facility] [address] [place] [address] Insurance Providers Payer Plan Claims Address Claims Phone Policy Number Group Number Relation Employer Guarantor Name Guarantor Guarantor Address Guarantor Phone STEFANIA (NEED S REFER RAL) [address] , [place] [address] tel:[phone] Self Ledy Graham [address] [place] [id number] Problems Condition ICD9 code ICD10 code SNOMED code Start Date End Date S tatus Encounter for screening for other metabolic disorders Z13.228 Type 2 diabetes mellitus with unspecified complications E11.8 Results Test Result Date/Time Value / Unit Interp. Refere nce Range C-Peptide, Serum[[id number]] Collected: 12/01/2024 05:48 PM Specimen Received: 12/01/2024 05:00 AM Source: [facility] C-Peptide, Serum [[id number]] 12/02/2024 09:38 AM 3.9 ng/mL 1.1-4.4 ng/mL C-Peptide reference interval is for fasting patients. Glucose[[id number]] Collected: 12/01/2024 05:48 PM Specimen Received: 12/01/2024 05:00 AM Source: [facility] Glucose [[id number]] 12/02/2024 04:31 AM 172 mg/dL H 70-99 mg/dL Comp. Metabolic Panel (14)[3 ] Collected: 11/26/2024 05:08 PM Specimen Received: 11/26/2024 05:00 AM Source: [facility] Glucose [[id number]] 11/27/2024 11:01 AM 226 mg/dL H 70-99 mg/dL BUN [[id number]] 11/27/2024 11:01 AM 10 mg/dL 6-2 4 mg/dL Creatinine [[id number]] 11/27/2024 11:01 AM 0.84 mg/dL 0.57-1.00 mg/dL eGFR [[id number]] 11/27/2024 11:01 AM 89 mL/min/1.73 >59 mL/min/1.73 BUN/Creatinine Ratio [[id number]] 11/27/2024 11:01 AM 12 9-23 Sodium [220111] 11/27/2024 11:01 AM 136 mmol/L 134-144 mmol/L Potassium [[id number]] 11/27/2024 11:01 AM 3.8 mmol/L 3.5-5.2 mmol/L Chloride [[id number]] 11/27/2024 11:01 AM 98 mmol/L 96-106 mmol/L Carbon Dioxide, Total [[id number]] 11/27/2024 11:01 AM 24 mmol/L 20-29 mmol/L Calcium [[id number]] 11/27/2024 10:32 AM 9.7 mg/dL 8.7-10.2 mg/dL Protein, Total [[id number]] 11/27/2024 11:01 AM 7.6 g/dL 6.0-8.5 g/dL Albumin [967481] 11/27/2024 11:01 AM 4.7 g/dL 3.9-4.9 g/dL Globulin, Total [[id number]] 11/27/2024 11:01 AM 2.9 g/dL 1.5-4.5 g/dL Bilirubin, Total [[id number]] 11/27/2024 11:01 AM 0.3 mg/dL 0.0-1.2 mg/dL Alkaline Phosphatase [[id number]] 11/27/2024 11:01 AM 85 IU/L 44-121 IU/L AST (SGOT) [[id number]] 11/27/2024 11:01 AM 35 IU/L 0-40 IU/L ALT (SGPT) [[id number]] 11/27/2024 11:01 AM 57 IU/L H 0-32 IU/L Lipid Panel[[id number]] Collected: 11/26/2024 05:08 PM Specimen Received: 11/26/2024 05:00 AM Source: [facility] Cholesterol, Total [[id number]] 11/27/2024 11:01 AM 220 mg/dL H 100-199 mg/d L Triglycerides [[id number]] 11/27/2024 11:01 AM 214 mg/dL H 0-149 mg/dL HDL Cholesterol [[id number]] 11/27/2024 11:01 AM 53 mg/dL >39 mg/dL VLDL Cholesterol Blane [[id number]] 11/27/2024 11:01 AM 38 mg/dL 5-40 mg/dL LDL Chol Calc ([facility]) [[id number]] 11/27/2024 11:01 AM 129 mg/dL H 0-99 mg/dL Albumin/Creatinine Ratio,Uri ne[[id number]] Collected: 11/26/2024 05:08 PM Specimen Received: 11/26/2024 05:00 AM Source: [facility] Creatinine, Urine [[id number]] 11/29/2024 12:17 AM 52.6 mg/dL Not Estab. m g/dL Albumin, Urine [[id number]] 11/29/2024 12:17 AM 25.5 ug/mL Not Estab. ug/mL Alb/Creat Ratio [[id number]] 11/29/2024 12:17 AM 48 mg/g creat H 0-29 mg/g creat Normal: 0 - 29 Moderately in creased: 30 - 300 Severely increased: >300 Hemoglobin A1c[[id number]] Collected: 11/26/2024 05:08 PM Specimen Received: 11/26/2024 05:00 AM Source: [facility] Hemoglobin A1c [[id number]] 11/27/2024 10:23 AM 11.9 % H 4.8-5.6 % . Prediabetes: 5.7 - 6.4 Rosa betes: >6.4 Glycemic control for adults with diabetes: 7.0 Allergies, adverse reactions, alerts No known allergies and adverse reactions Medications No administered medications reported Vital Signs No vital signs reported Social History No smoking Hx information available
--- OUTSIDE RECORDS SUMMARY | 2025-04-20 11:07 | XMS_ITS | Continuity of Care Document ---
Author Organization Formerly [facility] Address [address] [facility] [address] [place] [address] Insurance Providers Payer Plan Claims Address Claims Phone Policy Number Group Number Relation Employer Guarantor Name Guarantor Guarantor Address Guarantor Phone STEFANIA (NEED S REFER RAL) [address] , [facility] [place] [address] tel:[phone] Self Ledy Graham [address] [place] [address] Problems Condition ICD9 code ICD10 code SNOMED code Start Date End Date S tatus Encounter for screening for other metabolic disorders Z13.228 Type 2 diabetes mellitus with unspecified complications E11.8 Results Test Result Date/Time Value / Unit Interp. Refere nce Range C-Peptide, Serum[[id number]] Collected: 12/01/2024 05:48 PM Specimen Received: 12/01/2024 05:00 AM Source: [facility] C-Peptide, Serum [[id number]] 12/02/2024 09:38 AM 3.9 ng/mL 1.1-4.4 ng/mL C-Peptide reference interval is for fasting patients. Glucose[[id number]] Collected: 12/01/2024 05:48 PM Specimen Received: 12/01/2024 05:00 AM Source: [facility] Glucose [[id number]] 12/02/2024 04:31 AM 172 mg/dL H 70-99 mg/dL Comp. Metabolic Panel (14)[3 ] Collected: 11/26/2024 05:08 PM Specimen Received: 11/26/2024 05:00 AM Source: [facility] Glucose [[id number]] 11/27/2024 11:01 AM 226 mg/dL H 70-99 mg/dL BUN [[id number]] 11/27/2024 11:01 AM 10 mg/dL 6-2 4 mg/dL Creatinine [[id number]] 11/27/2024 11:01 AM 0.84 mg/dL 0.57-1.00 mg/dL eGFR [[id number]] 11/27/2024 11:01 AM 89 mL/min/1.73 >59 mL/min/1.73 BUN/Creatinine Ratio [[id number]] 11/27/2024 11:01 AM 12 9-23 Sodium [803113] 11/27/2024 11:01 AM 136 mmol/L 134-144 mmol/L Potassium [[id number]] 11/27/2024 11:01 AM 3.8 mmol/L 3.5-5.2 mmol/L Chloride [096026] 11/27/2024 11:01 AM 98 mmol/L 96-106 mmol/L Carbon Dioxide, Total [327926] 11/27/2024 11:01 AM 24 mmol/L 20-29 mmol/L Calcium [853995] 11/27/2024 10:32 AM 9.7 mg/dL 8.7-10.2 mg/dL Protein, Total [827570] 11/27/2024 11:01 AM 7.6 g/dL 6.0-8.5 g/dL Albumin [547447] 11/27/2024 11:01 AM 4.7 g/dL 3.9-4.9 g/dL Globulin, Total [[id number]] 11/27/2024 11:01 AM 2.9 g/dL 1.5-4.5 g/dL Bilirubin, Total [963816] 11/27/2024 11:01 AM 0.3 mg/dL 0.0-1.2 mg/dL Alkaline Phosphatase [332918] 11/27/2024 11:01 AM 85 IU/L 44-121 IU/L AST (SGOT) [399254] 11/27/2024 11:01 AM 35 IU/L 0-40 IU/L ALT (SGPT) [[id number]] 11/27/2024 11:01 AM 57 IU/L H 0-32 IU/L Lipid Panel[[id number]] Collected: 11/26/2024 05:08 PM Specimen Received: 11/26/2024 05:00 AM Source: [facility] Cholesterol, Total [[id number]] 11/27/2024 11:01 AM 220 mg/dL H 100-199 mg/d L Triglycerides [794202] 11/27/2024 11:01 AM 214 mg/dL H 0-149 mg/dL HDL Cholesterol [714746] 11/27/2024 11:01 AM 53 mg/dL >39 mg/dL VLDL Cholesterol Blane [630847] 11/27/2024 11:01 AM 38 mg/dL 5-40 mg/dL LDL Chol Calc ([facility]) [240885] 11/27/2024 11:01 AM 129 mg/dL H 0-99 mg/dL Albumin/Creatinine Ratio,Uri ne[[id number]] Collected: 11/26/2024 05:08 PM Specimen Received: 11/26/2024 05:00 AM Source: [facility] Creatinine, Urine [[id number]] 11/29/2024 12:17 AM 52.6 mg/dL Not Estab. m g/dL Albumin, Urine [[id number]] 11/29/2024 12:17 AM 25.5 ug/mL Not Estab. ug/mL Alb/Creat Ratio [[id number]] 11/29/2024 12:17 AM 48 mg/g creat H 0-29 mg/g creat Normal: 0 - 29 Moderately in creased: 30 - 300 Severely increased: >300 Hemoglobin A1c[[id number]] Collected: 11/26/2024 05:08 PM Specimen Received: 11/26/2024 05:00 AM Source: [facility] Hemoglobin A1c [[id number]] 11/27/2024 10:23 AM 11.9 % H 4.8-5.6 % . Prediabetes: 5.7 - 6.4 Rosa betes: >6.4 Glycemic control for adults with diabetes: 7.0 Allergies, adverse reactions, alerts No known allergies and adverse reactions Medications No administered medications reported Vital Signs No vital signs reported Social History No smoking Hx information available
[2025-04-20 15:10] LABS: Cholesterol 219 mg/dL (<200); HDL Cholesterol 53 mg/dL (>40); Triglycerides 150 mg/dL (<150)
== END 2025-04-20 11:01 | disposition home or self-care (01) ==
LOC: HO.HMGCLDS 11:00
DX: E78.00 Pure hypercholesterolemia, unspecified (principal)
CPT/HCPCS: 36415; 80061

== ENCOUNTER 2025-06-28 15:00 | Outpatient (AMB) | payer OTHER, SELFPAY ==
--- NOTE | 2025-06-28 15:08 | A.OFFPC_ITS ---
Vital Signs 06/28/25 15:09 Height 5 ft Weight 166 lb BMI 32.4 BP 140/78 H Blood Pressure Location Lt brachial Position Sitting Pulse 75 Pulse Source Pulse Oximeter Temp 97.1 F Temp Source Temporal Artery Scan Pulse Oximetry (%) 98 Oxygen Delivery Method Room Air Intake Visit Reasons: f/u DM and HLD Allergies No Known Allergies Allergy (Verified 06/28/25 15:44) Medication List - Last Reconciled 06/28/25 by Annie Faith PA-C blood sugar diagnostic (FreeStyle Lite Strips) 6x daily diclofenac sodium 1% (Voltaren Arthritis Pain) 2 grams topical QID metformin ER 1,000 mg PO BID pen needle, diabetic (BD Shavon 2nd Gen Pen Needle) once a day Tobacco use date assessed: 06/28/25 Dental Screening Dental Screen Date: 06/28/25 Did you have a dental visit in the last 12 months?: Yes Did you have a dental problem in the last 6 months where you did not have access to dental care?: No Was dental information given to patient?: Patient has dentist HPI f/u DM and HLD HPI Details 45-year-old female with past medical his tory of diabetes and hypertension last seen 02/2025 coming in for follow up.? In review of the notes, patient was seen by endocrinology 03/2025 through [facility] no medication changes were made at that visit and plan for follow up in 3 months. Her last hemoglobin A1c was 8.3% in March, but recent labs from the of this month showed an increase to 9.1%. She has been monitoring her blood sugar more often, noting that her morning sugars average around 190 mg/dL, while her daytime sugars are lower in the 120s-130s mg/dL. She was previously on Jardiance, which was stopped with her communications associate's approval. Regarding hyperlipidemia, recent lab work showed a total cholesterol of 220 mg/dL and an LDL of 148 mg/dL. Her LDL has fluctuated, with a previous value of 136 mg/dL and 155 mg/dL before that. Other cholesterol labs, including triglycerides, were reportedly within the normal range. The patient acknowledges her blood pressure is consistently high during doctor visits and was elevated at her recent endocrinology appointment. She admits to not checking her blood pressure at home. [facility] Medical History Obesity (BMI 30-39.9) Vitamin D deficiency Dyslipidemia Hypertension Diabetic nephropathy associated with type 2 diabetes mellitus MCC (current) use of insulin Diabetes type 2, controlled Surgical History Hx of umbilical hernia repair Hx of section Hx of cholecystectomy Family History Father Diabetes mellitus Mother Diabetes mellitus Maternal Grandmother Diabetes mellitus Social History Housing: House Alcohol intake: current Alcohol intake frequency: a few times a month Patient Tobacco Use Status: Never used Tobacco Tobacco use type: Cigarette e-Cigarette/Vaping Use: Never Used Second Hand Smoke Exposure: No service: No Current occupational status: employed Cognitive needs: No Hearing needs: No Vision needs: No Questionnaire PHQ-9 Over the last 2 weeks, how often have you been bothered by any of the following problems? 1. Little interest or pleasure in doing things: not at all 2. Feeling down, depressed, or hopeless: not at all 3. Trouble falling or staying asleep, or sleeping too much: not at all 4. Feeling tired or having little energy: not at all 5. Poor appetite or overeating: not at all 6. Feeling bad about yourself - or that you are a failure or have let yourself or your family down: not at all 7. Trouble concentrating on things, such as reading the newspaper or watching television: not at all 8. Moving or speaking so slowly that other people could have noticed. Or the opposite - being so fidgety or restless that you have been moving around a lot more than usual: not at all 9. Thoughts that you would be better off or of hurting yourself in some way: not at all Total score: 0 Depression Screening Interpretation: Negative Depression Screening Done: Yes Source: Developed by Drs. Obinna Mei, Mercy Resendiz, Kenton Mclaughlin and colleagues, with an educational simran from [employer]. Thrive Questionnaire Date Thrive assessed: 06/28/25 I am a: Patient What is your living situation today?: I have a steady place to live Within the past 12 months, did the food you bought not last and you didn't have the money to get more?: Never true Within the past 12 months, did you worry whether your food would run out before you got money to buy more?: Never true Do you have trouble paying for medicines?: No Do you have trouble getting transportation to medical appointments?: No Do you have trouble paying your heating and electricity bill?: No Do you have trouble taking care of your child, family member or friend?: No Do you have trouble with day-to-day activities such as bathing, preparing meals, shopping, managing finances, etc.?: No Are you currently unemployed and looking for a job?: No Are you interested in more education?: No Please select the resources that you would like help with: None Currently or been in a relationship where the following occur: No concerns reported THRIVE Score: 0 AUDIT C Alcohol Use Questionnaire (AUDIT-C) 1. How often do you have a drink containing alcohol?: Never Total Score: 0 GILES-7 AMB Questionnaire GILES-7 Date GILES - 7 assessed: 06/28/25 Feeling nervous, anxious, or on edge: 0 = Not at all Not being able to stop or control worryin = Not at all Worrying too much about different things: 0 = Not at all Trouble relaxin = Not at all Being so restless that it is hard to sit still: 0 = Not at all Becoming easily annoyed or irritable: 0 = Not at all Feeling afraid as if something awful might happen: 0 = Not at all Total GILES-7 score (0-4 normal; 5-9 mild; 10-14 moderate; 15-21 severe): 0 Source: Developed by Drs. Obinna Mei, Mercy Resendiz, Kenton Mclaughlin and colleagues, with an educational simran from [employer]. Review of Systems Const Denies body aches, Denies chills, Denies fever(s), Denies headache(s) and Denies poor appetite Eyes Reports no additional complaints ENT Denies dysphagia, Denies dizziness, Denies headache(s) and Denies odynophagia Card Denies chest pain, Denies syncope, Denies edema, Denies irregular heart rhythm, Denies lightheadedness and Denies dyspnea Resp Denies cough and Denies dyspnea GI Denies abdominal pain, Denies constipation, Denies dysphagia, Denies diarrhea, Denies nausea, Denies odynophagia and Denies vomiting Reports no additional complaints Musc Reports no additional complaints and Denies abnormal gait Skin/Breast Reports system reviewed and no additional complaints, except as documented Neuro Denies abnormal gait, Denies dizziness, Denies syncope and Denies headache(s) Psych Reports no additional complaints Physical exam (Primary Care) Vital Signs: Last Vital Signs Temp 97.1 F 06/28/25 15:09 Pulse 75 06/28/25 15:09 BP 140/78 H 06/28/25 15:09 Pulse Ox 98 06/28/25 15:09 Oxygen Delivery Method Room Air 06/28/25 15:09 BMI result Body Mass Index 32.4 Tobacco/Smoking Status: Tobacco use Status Tobacco use date assessed 06/28/25 06/28/25 15:11 Patient Tobacco Use Status Never used Tobacco 06/28/25 15:11 Tobacco use type Cigarette 06/28/25 15:11 e-Cigarette/Vaping Use Never Used 06/28/25 15:11 PHQ-9: PHQ-9 Score PHQ-9: Total score 0 06/28/25 16:13 Depression Screening Interpretation: Negative Thrive Assessment: Date of Thrive Assessment Date Thrive assessed 06/28/25 06/28/25 15:11 Currently or been in a relationship where the following occur: No concerns reported Const General: cooperative, healthy appearing, comfortable and no acute distress Orientation/consciousness: patient oriented x3 HENMT Head: Yes normocephalic Ears: hearing grossly normal bilaterally General nose exam: Normal external nose present Eyes General: appearance normal, both eyes and all related structures Conjunctivae: conjunctivae normal Neck Neck: Yes full ROM and Yes no lymphadenopathy Resp Effort & Inspection: normal respiratory effort Auscultation: clear to auscultation bilaterally, no crackles, no rales, no rhonchi and no wheezes Cardio Rate: regular rate Rhythm: regular rhythm Skin General skin exam: no rashes or lesions noted Neuro General: patient oriented x3 Gait exam (Neuro): Normal gait present Extrem General: Yes normal to inspection, Yes full ROM and No edema Psych Affect: normal affect Attitude: cooperative Insight: Good insight present (Psych) Judgement: Good judgement present (Psych) Coding Level of Care Code Est Pt Level 4 (04598) Diagnoses Hypertension I10 Dyslipidemia E78.5 Diabetes mellitus with coincident hypertension E11.9; I10 Obesity (BMI 30-39.9) E66.9 Assessment & Plan Assessment & Plan (1) Hypertension: Code(s): I10 - Essential (primary) hypertension Category: Medical Plan: The patient's blood pressure was elevated in the office at 146/88 mmHg, consistent with high readings at previous clinic visits, including at the communications associate's office. The patient was strongly instructed to begin regular home blood pressure monitoring. She was advised that if home readings are consistently high, starting an antihypertensive medication will be non- negotiable. Educational materials on proper blood pressure measurement technique and lifestyle modifications were provided. A follow-up is scheduled in six weeks to review the home blood pressure log and reassess the need for medication. (2) Dyslipidemia: Code(s): E78.5 - Hyperlipidemia, unspecified Category: Medical Plan: The patient's LDL cholesterol is elevated at 148 mg/dL, which is above the target of less than 100 mg/dL for individuals with diabetes, posing a risk for atherosclerosis. Her calculated 10-year risk of heart attack or stroke is low at 3.6%, but her lifetime risk is high at 39%. A discussion was had regarding the benefit of starting a statin medication. For now, medication will be held, and the patient will focus on lifestyle modifications. She received educational materials on dietary changes to lower cholesterol. The plan is to re-evaluate at the next visit. 06/17 cholesterol labs: total: 220 LDL: 148 (3) Diabetes mellitus with coincident hypertension: Code(s): E11.9 - Type 2 diabetes mellitus without complications; I10 - Essential (primary) hypertension Category: Medical Plan: The patient's diabetes is inadequately controlled, evidenced by a recent hemoglobin A1c of 9.1%, an increase from 8.3% in March. Morning glucose levels are elevated, averaging 190 mg/dL. Restarting Jardiance was recommended to improve glycemic control, particularly with the upcoming holidays. The patient will discuss this medication change with her communications associate. Educational materials on the diabetic diet and portion sizes were provided. (4) Obesity (BMI 30-39.9): Code(s): E66.9 - Obesity, unspecified Category: Medical Plan: Healthy diet and regular exercise is encouraged. Plan This note was constructed using voice recognition software. While every effort has been made to ensure accuracy and silver spray worker, still areas may have been included sometimes these areas may affect the content or meeting of the given symptoms. Total time spent caring for the patient today was 20 minutes. This includes time spent before the visit reviewing the chart, time spent during the visit, and time spent after the visit and documentation. Patient was informed an d verbally consented to the use of an ambient scribe for clinic note documentation during this visit.
[2025-06-28 15:09] VITALS: BP 140/78; PULSE 75; TEMP 36.2; O2SAT 98; BMI 32.4
--- OUTSIDE RECORDS SUMMARY | 2025-06-28 17:53 | XMS_ITS | Continuity of Care Document ---
Author Organization [facility] Address [address] [facility]. [address] [place] [address] Insurance Providers Payer Plan Claims Address Claims Phone Policy Number Group Number Relation Employer Guarantor Name Guarantor Guarantor Address Guarantor Phone STEFANIA (NEEDS REFERR AL) STEFANIA (NEED S REFER RAL) [address] , [place] [address] tel:[phone] Self Ledy Graham [address] [place] [address] Problems Condition ICD9 code ICD10 code SNOMED code Start Date End Date S tatus Encounter for screening for other metabolic disorders Z13.228 Type 2 diabetes mellitus with unspecified complications E11.8 Results Test Result Date/Time Value / Unit Interp. Refere nce Range Comp. Metabolic Panel (14)[3 [id number]] Collected: 06/17/2025 04:53 PM Specimen Received: 06/17/2025 05:00 AM Source: [facility] Glucose [[id number]] 06/18/2025 12:14 PM 217 mg/dL H 70-99 mg/dL BUN [[id number]] 06/18/2025 12:19 PM 12 mg/dL 6-2 4 mg/dL Creatinine [[id number]] 06/18/2025 12:21 PM 0.70 mg/dL 0.57-1.00 mg/dL eGFR [970188] 06/18/2025 12:21 PM 110 mL/min/1.73 >59 mL/min/1.73 BUN/Creatinine Ratio [[id number]] 06/18/2025 12:21 PM 17 9-23 Sodium [858886] 06/18/2025 12:17 PM 134 mmol/L 134-144 mmol/L Potassium [286035] 06/18/2025 12:16 PM 4.1 mmol/L 3.5-5.2 mmol/L Chloride [006062] 06/18/2025 12:16 PM 99 mmol/L 96-106 mmol/L Carbon Dioxide, Total [073517] 06/18/2025 12:16 PM 25 mmol/L 20-29 mmol/L Calcium [644261] 06/18/2025 12:16 PM 9.4 mg/dL 8.7-10.2 mg/dL Protein, Total [744494] 06/18/2025 12:20 PM 7.3 g/dL 6.0-8.5 g/dL Albumin [182790] 06/18/2025 12:19 PM 4.3 g/dL 3.9-4.9 g/dL Globulin, Total [046141] 06/18/2025 12:20 PM 3.0 g/dL 1.5-4.5 g/dL Bilirubin, Total [538554] 06/18/2025 12:19 PM 0.2 mg/dL 0.0-1.2 mg/d L Alkaline Phosphatase [579638] 06/18/2025 12:19 PM 52 IU/L 41-116 IU/L AST (SGOT) [045745] 06/18/2025 12:19 PM 21 IU/L 0-40 IU/L ALT (SGPT) [368769] 06/18/2025 12:19 PM 25 IU/L 0-32 IU/L Lipid Panel[[id number]] Collected: 06/17/2025 04:53 PM Specimen Received: 06/17/2025 05:00 AM Source: [facility] Cholesterol, Total [[id number]] 06/18/2025 12:19 PM 220 mg/dL H 100-199 mg/d L Triglycerides [387043] 06/18/2025 12:16 PM 134 mg/dL 0-149 mg/dL HDL Cholesterol [[id number]] 06/18/2025 12:14 PM 48 mg/dL >39 mg/dL VLDL Cholesterol Blane [[id number]] 06/18/2025 12:19 PM 24 mg/dL 5-40 mg/dL LDL Chol Calc ([facility]) [309080] 06/18/2025 12:19 PM 148 mg/dL H 0-99 mg/dL Albumin/Creatinine Ratio,Uri ne[[id number]] Collected: 06/17/2025 04:53 PM Specimen Received: 06/17/2025 05:00 AM Source: [facility] Creatinine, Urine [[id number]] 06/19/2025 03:18 AM 78.4 mg/dL Not Estab. m g/dL Albumin, Urine [[id number]] 06/19/2025 03:18 AM 25.6 ug/mL Not Estab. ug/mL Alb/Creat Ratio [[id number]] 06/19/2025 03:18 AM 33 mg/g creat H 0-29 mg/g creat Normal: 0 - 29 Moderately in creased: 30 - 300 Severely increased: >300 Hemoglobin A1c[[id number]] Collected: 06/17/2025 04:53 PM Specimen Received: 06/17/2025 05:00 AM Source: [facility] Hemoglobin A1c [[id number]] 06/18/2025 11:09 AM 9.1 % H 4.8-5.6 % . Prediabetes: 5.7 - 6.4 Di abetes: >6.4 Glycemic control for adults with diabetes: 7.0 C-Peptide, Serum[[id number]] Collected: 06/17/2025 04:53 PM Specimen Received: 06/17/2025 05:00 AM Source: [facility] C-Peptide, Serum [[id number]] 06/18/2025 09:53 PM 2.3 ng/mL 1.1-4.4 ng/m L C-Peptide reference interval is for fasting patients. Glucose[[id number]] Collected: 06/17/2025 04:53 PM Specimen Received: 06/17/2025 05:00 AM Source: [facility] Glucose [[id number]] 06/18/2025 12:16 PM 217 mg/dL H 70-99 mg/dL C-Peptide, Serum[[id number]] Collected: 12/01/2024 05:48 PM Specimen Received: 12/01/2024 05:00 AM Source: [facility] C-Peptide, Serum [[id number]] 12/02/2024 09:38 AM 3.9 ng/mL 1.1-4.4 ng/m L C-Peptide reference interval is for fasting patients. Glucose[[id number]] Collected: 12/01/2024 05:48 PM Specimen Received: 12/01/2024 05:00 AM Source: [facility] Glucose [[id number]] 12/02/2024 04:31 AM 172 mg/dL H 70-99 mg/dL Comp. Metabolic Panel (14)[[id number]] Collected: 11/26/2024 05:08 PM Specimen Received: 11/26/2024 05:00 AM Source: [facility] Glucose [[id number]] 11/27/2024 11:01 AM 226 mg/dL H 70-99 mg/dL BUN [[id number]] 11/27/2024 11:01 AM 10 mg/dL 6-2 4 mg/dL Creatinine [[id number]] 11/27/2024 11:01 AM 0.84 mg/dL 0.57-1.00 mg/dL eGFR [146458] 11/27/2024 11:01 AM 89 mL/min/1.73 >59 mL/min/1.73 BUN/Creatinine Ratio [547621] 11/27/2024 11:01 AM 12 9-23 Sodium [296080] 11/27/2024 11:01 AM 136 mmol/L 134-144 mmol/L Potassium [823718] 11/27/2024 11:01 AM 3.8 mmol/L 3.5-5.2 mmol/L Chloride [348809] 11/27/2024 11:01 AM 98 mmol/L 96-106 mmol/L Carbon Dioxide, Total [851130] 11/27/2024 11:01 AM 24 mmol/L 20-29 mmol/L Calcium [249433] 11/27/2024 10:32 AM 9.7 mg/dL 8.7-10.2 mg/dL Protein, Total [580534] 11/27/2024 11:01 AM 7.6 g/dL 6.0-8.5 g/dL Albumin [967150] 11/27/2024 11:01 AM 4.7 g/dL 3.9-4.9 g/dL Globulin, Total [130788] 11/27/2024 11:01 AM 2.9 g/dL 1.5-4.5 g/dL Bilirubin, Total [954632] 11/27/2024 11:01 AM 0.3 mg/dL 0.0-1.2 mg/d L Alkaline Phosphatase [884697] 11/27/2024 11:01 AM 85 IU/L 44-121 IU/L AST (SGOT) [537563] 11/27/2024 11:01 AM 35 IU/L 0-40 IU/L ALT (SGPT) [349805] 11/27/2024 11:01 AM 57 IU/L H 0-32 IU/L Lipid Panel[[id number]] Collected: 11/26/2024 05:08 PM Specimen Received: 11/26/2024 05:00 AM Source: [facility] Cholesterol, Total [[id number]] 11/27/2024 11:01 AM 220 mg/dL H 100-199 mg/d L Triglycerides [466887] 11/27/2024 11:01 AM 214 mg/dL H 0-149 mg/dL HDL Cholesterol [133646] 11/27/2024 11:01 AM 53 mg/dL >39 mg/dL VLDL Cholesterol Blane [[id number]] 11/27/2024 11:01 AM 38 mg/dL 5-40 mg/dL LDL Chol Calc ([facility]) [769294] 11/27/2024 11:01 AM 129 mg/dL H 0-99 mg/dL Albumin/Creatinine Ratio,Uri ne[[id number]] Collected: 11/26/2024 05:08 PM Specimen Received: 11/26/2024 05:00 AM Source: [facility] Creatinine, Urine [[id number]] 11/29/2024 12:17 AM 52.6 mg/dL Not Estab. m g/dL Albumin, Urine [[id number]] 11/29/2024 12:17 AM 25.5 ug/mL Not Estab. ug/mL Alb/Creat Ratio [171589] 11/29/2024 12:17 AM 48 mg/g creat H 0-29 mg/g creat Normal: 0 - 29 Moderately in creased: 30 - 300 Severely increased: >300 Hemoglobin A1c[[id number]] Collected: 11/26/2024 05:08 PM Specimen Received: 11/26/2024 05:00 AM Source: [facility] Hemoglobin A1c [[id number]] 11/27/2024 10:23 AM 11.9 % H 4.8-5.6 % . Prediabetes: 5.7 - 6.4 Rosa betes: >6.4 Glycemic control for adults with diabetes: 7.0 Allergies, adverse reactions, alerts No known allergies and adverse reactions Medications No administered medications reported Vital Signs No vital signs reported Social History No smoking Hx information available
--- OUTSIDE RECORDS SUMMARY | 2025-06-28 17:53 | XMS_ITS | Patient Health Record ---
Author Organization [facility] Address [address] [place] [address] Care Team Providers Care Saddle And Harness Maker Name Role Phone Annabel CORBIN, Julio C Primary Care Provider Jan Loya Jr Unavailable Reason For Referral No Information Plan Of Treatment No Information Insurance Providers Payer Name Payer Address Payer Phone Subscriber Number Group Number Insured Name Patient Relationship to Insured Coverage Start Date Coverage End Date [facility] (NEEDS REFERRA L) [address] [place] [phone] [id number] EDGARDO BUTTS Self - patient is the insured
== END 2025-06-28 16:14 | disposition home or self-care (01) ==
LOC: HO.HMCH 15:01
DX: E11.69 Type 2 diabetes mellitus with other specified complication (principal); I10 Essential (primary) hypertension; E66.9 Obesity, unspecified; Z68.32 Body mass index [BMI] 32.0-32.9, adult; E78.5 Hyperlipidemia, unspecified